=== PATIENT | female | born 1990 | race Caucasian/White ===

== ENCOUNTER 2016-08-29 17:10 | Emergency (ER) | payer MEDICAID ==
[~2016-08-29] VITALS: Ht 160 cm; Wt 68.3 kg
[2016-08-29] MEDS ORDERED: MECLIZINE CHEWABLE 25 MG TAB PO ONE (17:30)
[2016-08-29] MEDS ORDERED: SODIUM CHLORIDE 0.9% 1,000ML IVBOLUS ONE (17:30)
[2016-08-29] MEDS ORDERED: SODIUM CHLORIDE FLUSH 10ML SYR IVF ONE (17:30)
[2016-08-29] MEDS ORDERED: MECLIZINE CHEWABLE 25 MG TAB ONE (17:36)
[2016-08-29] MEDS ORDERED: ACETAMINOPHEN 325 MG TABLET PO ONE (18:30)
[2016-08-29 18:39] LABS: BLOOD UREA NITROGEN 12 mg/dL (7-18)
[2016-08-29 19:19] VITALS: BP 117/44
== END 2016-08-29 19:21 | disposition home or self-care (01) ==
LOC: ED 19:03
DX: R42 Dizziness and giddiness (principal)
CPT/HCPCS: 36415; 80048; 82040; 84703; 85025; 93005; 96360; 99285; J7030

== ENCOUNTER 2019-04-19 10:31 | Emergency (ER) | payer MEDICAID, OTHER ==
[~2019-04-19] VITALS: Ht 157.5 cm; Wt 81.6 kg
[2019-04-19 10:50] VITALS: BP 143/71
--- NOTE | 2019-04-19 11:01 | NUR ---
PT HERE WITH C/O COUGH X 2 WEEKS, YELLOW SPUTUM.
--- NOTE | 2019-04-19 11:07 | NUR ---
PT TO RADIOLOGY.
--- NOTE | 2019-04-19 11:16 | NUR ---
PT BACK FROM RADIOLOGY.
--- NOTE | 2019-04-19 11:20 | NUR ---
ALL RESULTS BACK AT THIS TIME, CHART UP FOR RECHECK.
--- NOTE | 2019-04-19 11:44 | NUR ---
Patient/Caregiver given discharge instructions and they have confirmed that they understand the instructions. Patient ambulatory with steady gait.
== END 2019-04-19 12:06 | disposition home or self-care (01) ==
LOC: ED 12:02
DX: J00 Acute nasopharyngitis [common cold] (principal); R05 Cough; R09.3 Abnormal sputum
CPT/HCPCS: 71046; 99283

== ENCOUNTER 2019-11-07 19:36 | Emergency (ER) | payer OTHER ==
[~2019-11-07] VITALS: Ht 160 cm; Wt 82.0 kg
[2019-11-07] MEDS ORDERED: ONDANSETRON 2MG/ML, 2ML IVPush ONE (20:00)
[2019-11-07] MEDS ORDERED: SODIUM CHLORIDE FLUSH 10ML SYR IVF ONE (20:00)
[2019-11-07] MEDS ORDERED: ONDANSETRON 2MG/ML, 2ML ONE (20:09)
[2019-11-07] MEDS ORDERED: MORPHINE SULFATE 4 MG/ML, 1ML ONE ×2 (20:09→21:17)
[2019-11-07] MEDS: MORPHINE SULFATE 4 MG/ML, 1ML IVPush PRN ×2 (20:21→21:19)
--- NOTE | 2019-11-07 20:41 | NUR ---
at bedside for assessment. Verbal order to nancy wrap R ankle and d/c. States pain meds helped w/ pain "i still feel it, but less."
[2019-11-07 21:24] VITALS: BP 122/84
== END 2019-11-07 22:00 ==
LOC: ED 21:54
DX: S93.491A Sprain of other ligament of right ankle, initial encounter (principal); W19.XXXA Unspecified fall, initial encounter; Y93.39 Activity, other involving climbing, rappelling and jumping off; Y92.832 Beach as the place of occurrence of the external cause; Y99.8 Other external cause status
CPT/HCPCS: 73610; 96374; 96375; 96376; 99284; J2270; J2405; 99285